=== PATIENT | male | born 1980 | race Caucasian/White ===

== ENCOUNTER 2016-06-27 10:53 | Emergency (ER) | payer OTHER ==
[2016-06-27 11:03] VITALS: BP 160/86
--- NOTE | 2016-06-27 12:15 | RAD ---
Indication: Ankle injury. 3 views of left ankle demonstrate soft tissue swelling laterally. There is no fracture.. Ankle mortise is intact. IMPRESSION: Soft tissue swelling laterally without evidence of fracture.
--- NOTE | 2016-06-27 12:24 | UC ---
Lower Extremity/Ankle HPI - HPI Summary HPI Summary: left ankle injury playing golf yesterday, able to bear weight but painful - History of Current Complaint Hx Obtained From: Patient Onset/Duration: Sudden Onset, Lasting Hours Severity Initially: Severe Severity Currently: Moderate Aggravating Factor(s): Standing, Ambulation Alleviating Factor(s): Rest Able to Bear Weight: Yes - Risk Factors Gout Risk Factors: Negative <Cara Long - Last Filed: 06/27/16 12:20> <Vikki Hickman - Last Filed: 06/27/16 12:41> - History of Current Complaint Chief Complaint: UCLowerExtremity Stated Complaint: ANKLE INJURY Time Seen by Provider: 06/27/16 12:17 - Allergies/Home Medications Allergies/Adverse Reactions: Allergies Allergy/AdvReac Type Severity Reaction Status Date / Time Peanut-containing Drug Allergy Anaphylatic Verified 06/27/16 11:04 Products Shock Home Medications: Home Medications Albuterol HFA INHALER* [Ventolin HFA Inhaler*] 06/27/16 [History Confirmed ] Cetirizine* [ZyrTEC 10 MG TAB*] 06/27/16 [History] Montelukast Sodium TAB* [Singulair 10 MG TAB*] 06/27/16 [History] buPROPion SR TAB* [Wellbutrin SR TAB*] 06/27/16 [History Confirmed 06/27/16] PMH/Surg Hx/FS Hx/Imm Hx Previously Healthy: Yes Respiratory History Of: Reports: Asthma - Surgical History Surgical History: None - Family History Known Family History: Negative: Cardiac Disease, Hypertension - Social History Alcohol Use: Occasionally Substance Use Type: None Smoking Status (MU): Never Smoked Tobacco <Cara Long - Last Filed: 06/27/16 12:20> Review of Systems Constitutional: Negative Skin: Negative Eyes: Negative ENT: Negative Respiratory: Negative Cardiovascular: Negative Gastrointestinal: Negative Genitourinary: Negative Motor: Negative Neurovascular: Negative Musculoskeletal: Arthralgia, Decreased ROM, Edema, Myalgia Neurological: Negative Psychological: Negative All Other Systems Reviewed And Are Negative: Yes <Cara Long - Last Filed: 06/27/16 12:20> Physical Exam Triage Information Reviewed: Yes Appearance: Well-Appearing, Well-Nourished, Pain Distress Vital Signs: Initial Vital Signs Temp 99.0 F 06/27/16 11:00 Pulse 87 06/27/16 11:00 Resp 18 06/27/16 11:00 BP 160/86 06/27/16 11:00 Pulse Ox 100 06/27/16 11:00 Vital Signs Reviewed: Yes Eye Exam: Normal Eyes: Positive: Conjunctiva Clear ENT: Positive: Hearing grossly normal, Pharynx normal, TMs normal Dental Exam: Normal Neck exam: Normal Neck: Positive: Supple, Nontender, No Lymphadenopathy Respiratory Exam: Normal Respiratory: Positive: Chest non-tender, Lungs clear, Normal breath sounds Cardiovascular Exam: Normal Cardiovascular: Positive: RRR, No Murmur, Pulses Normal Abdominal Exam: Normal Abdomen Description: Positive: Nontender, No Organomegaly, Soft Bowel Sounds: Positive: Present Musculoskeletal: Positive: Strength Intact, ROM Limited @ - in dorsi flexion, supintation and pronation, Edema @ Neurological Exam: Normal Neurological: Positive: Alert, Muscle Tone Normal Psychological Exam: Normal Skin Exam: Normal <Cara Long - Last Filed: 06/27/16 12:20> Vital Signs: Initial Vital Signs Temp 99.0 F 06/27/16 11:00 Pulse 87 06/27/16 11:00 Resp 18 06/27/16 11:00 BP 160/86 06/27/16 11:00 Pulse Ox 100 06/27/16 11:00 <Vikki Hickman - Last Filed: 06/27/16 12:41> Lower Extremity Course/Dx - Course Course Of Treatment: hx obtained, exam performed, meds reviewed, patient refused pain medications. xray neg for fracture, coco and gel spint applied. - Differential Dx/Diagnosis Differential Diagnosis/HQI/PQRI: Bursitis, Cellulitis, Contusion, Dislocation, Fracture (Closed), Infection, Sprain, Strain Provider Diagnoses: left lateral ankle sprain <Cara Long - Last Filed: 06/27/16 12:20> Discharge <Cara Long - Last Filed: 06/27/16 12:20> <Vikki Hickman - Last Filed: 06/27/16 12:41> - Discharge Plan Condition: Stable Disposition: HOME Patient Education Materials: Ankle Sprain (ED) Referrals: Blas Gastelum NP [Primary Care Provider] - Additional Instructions: Rest, Ice for next 24 hours, compress with coco wrap and elevate as much as possible. Ibuprofen as needed. Attestation Statement User Type: Provider - I was available for consult. This patient was seen by the [facility]GR[facility]. The patient was not presented to, seen by, or examined by me. <Vikki Hickman - Last Filed: 06/27/16 12:41>
== END 2016-06-27 12:50 | disposition home or self-care (01) ==
LOC: UCEAST 10:53
DX: S93.402A Sprain of unspecified ligament of left ankle, initial encounter (principal); X58.XXXA Exposure to other specified factors, initial encounter; Y93.53 Activity, golf; J45.909 Unspecified asthma, uncomplicated; Z91.010 Allergy to peanuts
CPT/HCPCS: 99213; G0463

== ENCOUNTER 2016-12-23 17:40 | Emergency (ER) | payer OTHER ==
[2016-12-23 18:57] VITALS: BP 149/78
[2016-12-23] MEDS ORDERED: DOXYcycline CAP(*) 100 MG PO ONE (19:15)
--- NOTE | 2016-12-23 19:27 | UC ---
Skin Complaint HPI - HPI Summary HPI Summary: TICK REMOVED FROM BACK TODAY. UNSURE TO HOW LONG IT HAD BEEN EMBEDDED. - History of Current Complaint Chief Complaint: UCSkin Time Seen by Provider: 12/23/16 19:02 Stated Complaint: TICK BITE Hx Obtained From: Patient Onset/Duration: Gradual Onset Skin Exposure Onset/Duration: Hours Ago Onset Severity: Mild Current Severity: Mild Location: Discrete - RIGHT BACK Character: Redness Aggravating Factor(s): Nothing Alleviating Factor(s): Nothing Associated Signs & Symptoms: Positive: Rash, Red Streaks. Negative: Fever, Chills, Hoarseness, Throat Tightening, Drainage, Bruising, Tenderness Related History: Insect Bite/Sting, Possible Reaction to: Insect - Allergy/Home Medications Allergies/Adverse Reactions: Allergies Allergy/AdvReac Type Severity Reaction Status Date / Time Peanut-containing Drug Allergy Anaphylatic Verified 12/23/16 18:57 Products Shock Home Medications: Home Medications Dexmethylphenidate HCl [Dexmethylphenidate HCl ER] 15 mg PO DAILY 12/23/16 [ History Confirmed 12/23/16] Review of Systems Constitutional: Fever Skin: Rash Eyes: Negative ENT: Negative Respiratory: Negative Cardiovascular: Negative Gastrointestinal: Negative Genitourinary: Negative Motor: Negative Neurovascular: Negative Musculoskeletal: Negative Neurological: Negative Psychological: Negative Is Patient Immunocompromised?: No All Other Systems Reviewed And Are Negative: Yes PMH/Surg Hx/FS Hx/Imm Hx Previously Healthy: Yes - Surgical History Surgical History: None - Family History Known Family History: Negative: Cardiac Disease, Hypertension - Social History Occupation: Employed Full-time Lives: With Family Alcohol Use: Occasionally Substance Use Type: None Smoking Status (MU): Never Smoked Tobacco Physical Exam Triage Information Reviewed: Yes Appearance: Well-Appearing, No Pain Distress, Well-Nourished Vital Signs: Initial Vital Signs Temp 98.2 F 12/23/16 18:55 Pulse 89 12/23/16 18:55 Resp 16 12/23/16 18:55 BP 149/78 12/23/16 18:55 Pulse Ox 100 12/23/16 18:55 Vital Signs Reviewed: Yes Eye Exam: Normal ENT Exam: Normal ENT: Positive: Normal ENT inspection, TMs normal Dental Exam: Normal Neck exam: Normal Neck: Positive: Supple, Nontender, No Lymphadenopathy Respiratory Exam: Normal Respiratory: Positive: Chest non-tender, Lungs clear, Normal breath sounds, No respiratory distress Cardiovascular Exam: Normal Cardiovascular: Positive: RRR, No Murmur, Pulses Normal Abdominal Exam: Normal Musculoskeletal Exam: Normal Neurological Exam: Normal Psychological Exam: Normal Skin: Positive: rashes - ERRYTHEMA RIGHT LATERAL BACK Course/Dx - Differential Diagnoses - Skin Complaint Differential Diagnoses: Cellulitis, Tick Born Illness - Diagnoses Provider Diagnoses: TICK BITE PROPHYLAXIS Discharge - Discharge Plan Condition: Stable Disposition: HOME Prescriptions: DOXYcycline CAP(*) [DOXYcycline 100MG CAP(*)] 100 mg PO BID #4 cap Patient Education Materials: Lyme Disease (ED), Tick Bite (ED) Referrals: Blas Gastelum NP [Primary Care Provider] -
== END 2016-12-23 19:25 | disposition home or self-care (01) ==
LOC: UCEAST 17:40
DX: S20.461A Insect bite (nonvenomous) of right back wall of thorax, initial encounter (principal); W57.XXXA Bitten or stung by nonvenomous insect and other nonvenomous arthropods, initial encounter; Y92.9 Unspecified place or not applicable
CPT/HCPCS: 99212; A9270-GY; G0463